=== PATIENT | male | born 1950 | race Caucasian/White ===

== ENCOUNTER 2020-12-23 18:23 | Emergency (ER) | payer OTHER, MEDICAID ==
[~2020-12-23] VITALS: Ht 162.6 cm; Wt 81.6 kg
[2020-12-23 18:29] VITALS: BP_SYST 120
[2020-12-23] MEDS ORDERED: DIPH-TET-PERTUS Vaccine 0.5 ML VIAL (ADACEL) I.M. ONE (20:15)
[2020-12-24 01:40] VITALS: BP_SYST 141
== END 2020-12-24 01:40 | disposition home or self-care (01) ==
LOC: SED 18:23
DX: S00.83XA Contusion of other part of head, initial encounter (principal); W07.XXXA Fall from chair, initial encounter; Y93.89 Activity, other specified; Y92.89 Other specified places as the place of occurrence of the external cause; Y99.8 Other external cause status
CPT/HCPCS: 70450-TC; 76376; 90715; 99285